=== PATIENT | male | born 1940 | race Caucasian/White ===

== ENCOUNTER 2017-11-26 04:01 | Observation (INO) | payer MEDICARE, BC ==
[2017-11-26] MEDS ORDERED: Ondansetron 4 MG/2 ML SDV IVPUSH ONE ×2 (04:43→04:45)
[2017-11-26] MEDS ORDERED: Sodium Chloride 0.9% 10 ML Syringe FLUSH PRN (04:44)
[2017-11-26] MEDS ORDERED: Sodium Chloride 0.9% 500 ML IV ONE (04:45)
[2017-11-26] MEDS ORDERED: Aspirin 81 MG Tab.Chew PO ONE (04:45)
[2017-11-26] MEDS ORDERED: Nitroglycerin 0.4 MG Tab.SL SL PRN (04:46)
--- NOTE | 2017-11-26 05:03 | EDM.PDOC ---
ED HPI GENERAL MEDICAL PROBLEM - General Chief Complaint: General Stated Complaint: CHEST PAIN Time Seen by Provider: 11/26/17 04:28 Source of Information: Reports: Patient, RN History Limitations: Reports: No Limitations - History of Present Illness INITIAL COMMENTS - FREE TEXT/NARRATIVE: 77 yr male presents with chest pain and nausea with shortness of breath, previous AL. 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 Mid-Sternal Chest Pain Score (Numeric/FACES): 10 - Related Data Allergies Allergy/AdvReac Type Severity Reaction Status Date / Time No Known Allergies Allergy Verified 11/26/17 07:27 Home Meds: Home Meds . [Unable to Verify Home Med List] 11/26/17 [History] ED ROS GENERAL - Review of Systems Review Of Systems: See Below Constitutional: Reports: Weakness HEENT: Reports: No Symptoms Respiratory: Reports: Shortness of Breath Cardiovascular: Reports: Chest Pain, Dyspnea on Exertion. Denies: Edema GI/Abdominal: Reports: Nausea ED EXAM, GENERAL - Physical Exam Exam: See Below Exam Limited By: No Limitations General Appearance: Alert, Anxious, Mild Distress Ears: Hearing Grossly Normal Nose: Normal Inspection Throat/Mouth: Normal Inspection, No Airway Compromise Head: Atraumatic, Normocephalic Neck: Normal Inspection, Supple, Non-Tender Respiratory/Chest: Lungs Clear, Normal Breath Sounds Cardiovascular: Regular Rate, Rhythm, No Edema GI/Abdominal: Normal Bowel Sounds, Soft Extremities: Normal Inspection, No Pedal Edema, Normal Capillary Refill Neurological: Alert, Oriented, Normal Cognition Skin Exam: Warm, Intact, Normal Color Course - Vital Signs Last Recorded V/S: Last Vital Signs Temp 98 F 11/26/17 15:45 Pulse 78 11/26/17 15:45 Resp 20 11/26/17 15:45 BP 123/81 11/26/17 15:45 Pulse Ox 97 11/26/17 15:45 - Orders/Labs/Meds Orders: Active Orders 24 hr Category Date Time Status Cardiac Monitoring [RC] 08,20 Care 11/26/17 04:44 Active Peripheral IV Insertion Adult [OM.PC] Stat Oth 11/26/17 04:44 Ordered Labs: Laboratory Tests 11/26/17 11/26/17 11/26/17 Range/Units 04:50 04:50 04:50 WBC 12.4 H (4.0-11.0) K/uL RBC 4.46 L (4.50-6.50) M/uL Hgb 13.8 (13.0-18.0) g/dL Hct 40.7 (40.0-54.0) % MCV 91 (76-96) fL MCH 30.9 (27.0-32.0) pg MCHC 33.9 (31.0-35.0) g/dL RDW 12.5 (11.0-16.0) % Plt Count 130 L (150-400) K/uL MPV 12.0 H (6.0-10.0) fL Neut % (Auto) 89.6 H (45.0-70.0) % Lymph % (Auto) 6.8 L (20.0-40.0) % [place] % (Auto) 3.1 (3.0-10.0) % Eos % (Auto) 0.4 L (1.0-5.0) % Baso % (Auto) 0.1 (0.0-0.5) % Neut # (Auto) 11.16 H (2.00-7.50) K/uL Lymph # (Auto) 0.84 L (1.50-4.00) K/uL [place] # (Auto) 0.38 (0.20-0.80) K/uL Eos # (Auto) 0.05 (0.04-0.40) K/uL Baso # (Auto) 0.01 L (0.02-0.10) K/uL PT 10.1 (9.0-11.5) sec INR 1.0 (1.0-3.5) APTT 23.9 L (27.0-35.0) SECONDS Sodium 146 H (136-145) mmol/L Potassium 3.6 (3.5-5.1) mmol/L Chloride 109 H (98-107) mmol/L Carbon Dioxide 22.3 (21.0-32.0) mmol/L Anion Gap 18.3 H (5.0-15.0) mmol/L BUN 27 H (8-26) mg/dL Creatinine 1.44 H (0.70-1.30) mg/dL Est Cr Clr Drug Dosing TNP Estimated GFR (MDRD) 48 L (>60) MLS/MIN BUN/Creatinine Ratio 18.8 (6-25) Glucose 153 H (74-100) mg/dL Calcium 7.8 L (8.5-10.1) mg/dL Total Bilirubin 1.9 H (0.0-1.0) mg/dL AST 25 (15-37) U/L ALT 33 (12-78) U/L Alkaline Phosphatase 58 (46-116) U/L Troponin I (0.000-0.060) ng/mL Total Protein 6.1 L (6.4-8.2) g/dL Albumin 3.4 (3.4-5.0) g/dL Globulin 2.7 (2.2-4.2) g/dL Albumin/Globulin Ratio 1.3 (0.8-2.0) 11/26/17 Range/Units 04:50 WBC (4.0-11.0) K/uL RBC (4.50-6.50) M/uL Hgb (13.0-18.0) g/dL Hct (40.0-54.0) % MCV (76-96) fL MCH (27.0-32.0) pg MCHC (31.0-35.0) g/dL RDW (11.0-16.0) % Plt Count (150-400) K/uL MPV (6.0-10.0) fL Neut % (Auto) (45.0-70.0) % Lymph % (Auto) (20.0-40.0) % [place] % (Auto) (3.0-10.0) % Eos % (Auto) (1.0-5.0) % Baso % (Auto) (0.0-0.5) % Neut # (Auto) (2.00-7.50) K/uL Lymph # (Auto) (1.50-4.00) K/uL [place] # (Auto) (0.20-0.80) K/uL Eos # (Auto) (0.04-0.40) K/uL Baso # (Auto) (0.02-0.10) K/uL PT (9.0-11.5) sec INR (1.0-3.5) APTT (27.0-35.0) SECONDS Sodium (136-145) mmol/L Potassium (3.5-5.1) mmol/L Chloride (98-107) mmol/L Carbon Dioxide (21.0-32.0) mmol/L Anion Gap (5.0-15.0) mmol/L BUN (8-26) mg/dL Creatinine (0.70-1.30) mg/dL Est Cr Clr Drug Dosing Estimated GFR (MDRD) (>60) MLS/MIN BUN/Creatinine Ratio (6-25) Glucose (74-100) mg/dL Calcium (8.5-10.1) mg/dL Total Bilirubin (0.0-1.0) mg/dL AST (15-37) U/L ALT (12-78) U/L Alkaline Phosphatase (46-116) U/L Troponin I < 0.017 (0.000-0.060) ng/mL Total Protein (6.4-8.2) g/dL Albumin (3.4-5.0) g/dL Globulin (2.2-4.2) g/dL Albumin/Globulin Ratio (0.8-2.0) Meds: Medications Discontinued Medications Generic Name Dose Route Start Last Admin Trade Name Freq PRN Reason Stop Dose Admin Al Hydroxide/Mg Hydroxide 30 ml 11/26/17 06:28 11/26/17 09:12 Mag-Al Plus PO 30 ml Q4H PRN Administration Abdominal Pain Al Hydroxide/Mg Hydroxide 30 ml 11/26/17 05:10 11/26/17 05:14 Gi Cocktail PO 11/26/17 05:11 30 ml ONETIME ONE Administration Aspirin 324 mg 11/26/17 04:45 11/26/17 04:27 Aspirin PO 11/26/17 04:46 324 mg ONETIME ONE Administration Sodium Chloride 500 mls @ 999 mls/hr 11/26/17 04:45 11/26/17 04:47 Normal Saline IV 11/26/17 05:15 999 mls/hr .BOLUS ONE Administration Morphine Sulfate 2 mg 11/26/17 07:36 11/26/17 04:59 Morphine IVPUSH 11/26/17 07:37 2 mg ONETIME ONE Administration Nitroglycerin 0.4 mg 11/26/17 04:46 11/26/17 04:37 Nitrostat SL 0.4 mg Q5M PRN Administration Chest Pain Ondansetron HCl 4 mg 11/26/17 04:45 11/26/17 08:09 Zofran IVPUSH 11/26/17 04:46 Not Given ONETIME ONE Ondansetron HCl 4 mg 11/26/17 04:43 11/26/17 04:43 Zofran IVPUSH 11/26/17 04:44 4 mg ONETIME ONE Administration Pantoprazole Sodium 40 mg 11/26/17 06:24 11/26/17 09:12 Protonix Iv IVPUSH 11/26/17 06:25 40 mg ONETIME ONE Administration Sodium Chloride 10 ml 11/26/17 04:44 Saline Flush FLUSH ASDIRECTED PRN Keep Vein Open - Re-Assessments/Exams Free Text/Narrative Re-Assessment/Exam: 11/26/17 05:13 ASA, nitro and MS 2 mg IV given, along with Zofran 4mg IV, pt resting now. BP 124/70, HR 86 NSR w occasional PAC, rates pain "7". States had oatmeal yesterday and hot roast beef sandwich. Free Text/Narrative Re-Assessment/Exam: 11/26/17 09:08 Pt states some upper abdominal tenderness persists. Will start Maalox and Protonix. Repeat troponin now and at 1400 with repeat CBC. Continue with IV fluids and observation. Free Text/Narrative Re-Assessment/Exam: 11/26/17 16:59 Pt has rested well after placed on observation. MOM repeated X 1 and symptoms resolved. Recommend F/U with PCP with return to home. Recommend use of MOM or Mylanta as needed for GI symptoms. Recommend bland, soft foods, limit spicy and limit high fatty foods. Pt ambulatory and in no acute distress to care of friends. Pt and friends have been in the area ice [place]. Return to Primary care provider with return to home. Troponins checked X 3 today and all results normal. WBC slightly elevated 11.6. Notify PCP with office visit. Return to ER if chest pain returns. Departure - Departure Time of Disposition: 16:15 Disposition: Home, Self-Care 01 Condition: Good Clinical Impression: Gastrointestinal distress - Discharge Information - My Orders Last 24 Hours: My Active Orders 11/26/17 04:44 Cardiac Monitoring [RC] 08,20 Peripheral IV Insertion Adult [OM.PC] Stat - Assessment/Plan Last 24 Hours: My Active Orders 11/26/17 04:44 Cardiac Monitoring [RC] 08,20 Peripheral IV Insertion Adult [OM.PC] Stat
[2017-11-26] MEDS ORDERED: GI Cocktail Oral Solution 30 ML PO ONE (05:10)
[2017-11-26] MEDS ORDERED: Pantoprazole 40 MG Vial IVPUSH ONE (06:24)
[2017-11-26] MEDS ORDERED: Aluminum Hydroxide/Magnesium Hydroxide/Simethicone Susp 30 ML Cup PO PRN (06:28)
[2017-11-26] MEDS ORDERED: Morphine 2 MG/ML Syringe IVPUSH ONE (07:36)
--- NOTE | 2017-11-26 12:13 | CR ---
DATE OF SERVICE: 11/26/17 CLINICAL DATA: chest pain AP PORTABLE CHEST: No priors. The patient is status post median sternotomy. The heart is mildly enlarged. There is calcification of the aortic arch. The patient has taken a poor inspiration. The lungs appear clear. No evidence of acute intrathoracic disease. [id number] MTDD
--- NOTE | 2017-11-28 17:43 | PCM.DCSUM1 ---
Discharge Summary - Hospital Course HPI Initial Comments: 77 yr male presented to ER with midsternal chest pain, relieved with GI cocktail. EKG and troponin checked and normal value noted. Place pt on observation to monitor troponin level over time. Pt rested well with no return of chest pain. Maalox given X 1 and resolved tenderness to epigastric area. Troponin level remained normal throughout day, will discharge to care of friends and home tomorrow. Pt notified of hospital visit. Recommend follow-up with PCP when return to home. - Discharge Data Discharge Date: 11/26/17 Discharge Disposition: Home, Self-Care 01 Condition: Good - Patient Instructions Diet, Other: bland, soft diet Activity: As Tolerated, No Strenuous Activities Driving: Do Not Drive Showering/Bathing: May Shower Notify Provider of: Increased Pain - Discharge Plan Home Medications: Home Meds . [Unable to Verify Home Med List] 11/26/17 [History] Patient Handouts: Food Choices for Gastroesophageal Reflux Disease, Adult Forms: ED Department Discharge Referrals: PCP,None [Primary Care Provider] - - Discharge Summary/Plan Comment Discharge Summary/Plan Comment: Discharge to self-care with assist of friends and then to home tomorrow. Recommend F/U at home with PCP. Recommend use of Maalox or Mylanta if symptoms return. If chest pain occurs, pt must return to ER CARE[facility]. Recommend continue home medications, soft, bland diet and take it easy for 24-48 hour. Pt does have nitro. and discussed use of this every 5 minutes X 3 if needed for chest pain and to make sure he is sitting or lying down when he takes this. Questions invited and answered for pt. Pt ambulatory in no acute distress and states feeling so much better and never rested so well for a long time. - General Info Date of Service: 11/26/17 Functional Status: Reports: Pain Controlled - Review of Systems General: Reports: No Symptoms HEENT: Reports: No Symptoms Pulmonary: Denies: Shortness of Breath, Cough Cardiovascular: Denies: Chest Pain, Palpitations Gastrointestinal: Denies: Abdominal Pain, Nausea, Vomiting Musculoskeletal: Reports: No Symptoms Neurological: Reports: No Symptoms Psychiatric: Reports: No Symptoms - Patient Data Vitals - Most Recent: Last Vital Signs Temp 98 F 11/26/17 15:45 Pulse 78 11/26/17 15:45 Resp 20 11/26/17 15:45 BP 123/81 11/26/17 15:45 Pulse Ox 97 11/26/17 15:45 Weight - Most Recent: 175 lb Med Orders - Current: Current Medications Discontinued Medications Al Hydroxide/Mg Hydroxide (Mag-Al Plus) 30 ml PO Q4H PRN PRN Reason: Abdominal Pain Last Admin: 11/26/17 09:12 Dose: 30 ml Al Hydroxide/Mg Hydroxide (Gi Cocktail) 30 ml PO ONETIME ONE Stop: 11/26/17 05:11 Last Admin: 11/26/17 05:14 Dose: 30 ml Aspirin (Aspirin) 324 mg PO ONETIME ONE Stop: 11/26/17 04:46 Last Admin: 11/26/17 04:27 Dose: 324 mg Sodium Chloride (Normal Saline) 500 mls @ 999 mls/hr IV .BOLUS ONE Stop: 11/26/17 05:15 Last Admin: 11/26/17 04:47 Dose: 999 mls/hr Morphine Sulfate (Morphine) 2 mg IVPUSH ONETIME ONE Stop: 11/26/17 07:37 Last Admin: 11/26/17 04:59 Dose: 2 mg Nitroglycerin (Nitrostat) 0.4 mg SL Q5M PRN PRN Reason: Chest Pain Last Admin: 11/26/17 04:37 Dose: 0.4 mg Ondansetron HCl (Zofran) 4 mg IVPUSH ONETIME ONE Stop: 11/26/17 04:46 Last Admin: 11/26/17 08:09 Dose: Not Given Ondansetron HCl (Zofran) 4 mg IVPUSH ONETIME ONE Stop: 11/26/17 04:44 Last Admin: 11/26/17 04:43 Dose: 4 mg Pantoprazole Sodium (Protonix Iv) 40 mg IVPUSH ONETIME ONE Stop: 11/26/17 06:25 Last Admin: 11/26/17 09:12 Dose: 40 mg Sodium Chloride (Saline Flush) 10 ml FLUSH ASDIRECTED PRN PRN Reason: Keep Vein Open - Exam General: Reports: Alert, Oriented, Cooperative, No Acute Distress HEENT: Reports: Mucous Membr. Moist/[place] Neck: Reports: Supple, Trachea Midline Lungs: Reports: Clear to Auscultation, Normal Respiratory Effort Cardiovascular: Reports: Regular Rate, Regular Rhythm GI/Abdominal Exam: Soft, Non-Tender Extremities: Normal Inspection, Normal Range of Motion, Non-Tender, No Pedal Edema, Normal Capillary Refill Skin: Reports: Warm, Dry Neurological: Reports: Normal Gait, Normal Speech Psy/Mental Status: Reports: Alert, Normal Affect, Normal Mood *Q Meaningful Use (DIS) - VTE *Q VTE Criteria *Q: - Stroke *Q Stroke Criteria *Q: - AMI *Q AMI Criteria *Q:
== END 2017-11-26 15:52 | disposition home or self-care (01) ==
LOC: LB.ED 04:01 → LB.MS 05:28
PROVIDERS: ADMIT Nurse Practitioner Family; ATTEND Nurse Practitioner Family
DX: R07.89 Other chest pain (principal); K30 Functional dyspepsia
CPT/HCPCS: 36415; 71045; 80053; 84484; 85025; 85610; 85730; 93005; 96361; 96374; 96375; 99285; A9270; C9113; G0378; J2270; J2405; J7040